=== PATIENT | female | born 1985 | race Caucasian/White ===

== ENCOUNTER → 2016-07-08 | Outpatient (CLI) | payer OTHER, SELFPAY ==
[2016-07-08 13:49] LABS: MEAN CORPUSCULAR HEMOGLOBIN 29.6 pg (27.0-33.0); MEAN CORPUSCULAR HGB CONC 32.4 g/dl (32.0-36.5); MEAN CORPUSCULAR VOLUME 91.3 fl (80.0-96.0); RED CELL DISTRIBUTION WIDTH 13.7 % (11.5-14.5); WHITE BLOOD COUNT 9.8 K/mm3 (4.0-10.0)
== END ==
LOC: M LAB 11:05
PROVIDERS: ATTEND Obstetrics & Gynecology
DX: Z34.82 Encounter for supervision of other normal pregnancy, second trimester (principal)

== ENCOUNTER 2016-07-28 00:24 | Outpatient (CLI) | payer OTHER ==
[~2016-07-28] VITALS: Ht 160 cm; Wt 83.0 kg
[2016-07-28 00:36] VITALS: BP 110/65
[2016-07-28 00:37] VITALS: BP 112/68
== END 2016-07-28 03:20 | disposition home or self-care (01) ==
LOC: M LDO 00:24
PROVIDERS: ATTEND Obstetrics & Gynecology
DX: O62.0 Primary inadequate contractions (principal); Z3A.34 34 weeks gestation of pregnancy

== ENCOUNTER → 2016-08-12 | Outpatient (REF) | payer OTHER | LOC: M LAB REF 17:00 | PROVIDERS: ATTEND Advanced Practice Midwife | DX: Z34.83 Encounter for supervision of other normal pregnancy, third trimester (principal) ==

== ENCOUNTER 2016-08-24 05:28 | Outpatient (CLI) | payer OTHER, SELFPAY ==
[~2016-08-24] VITALS: Ht 160 cm; Wt 90.0 kg
[2016-08-24 05:40] VITALS: BP 115/71
[2016-08-24] MEDS ORDERED: PRENTAB9 PO (05:48)
[2016-08-24 07:05] VITALS: BP 100/59
[2016-08-24 08:25] VITALS: BP 110/67
== END 2016-08-24 08:35 | disposition home or self-care (01) ==
LOC: M LDO 05:28
PROVIDERS: ATTEND Obstetrics & Gynecology
DX: O47.1 False labor at or after 37 completed weeks of gestation (principal); Z3A.38 38 weeks gestation of pregnancy

== ENCOUNTER 2016-08-26 02:29 | Inpatient (IN) | payer OTHER ==
[~2016-08-26] VITALS: Ht 160 cm; Wt 87.0 kg
[~2016-08-26 02:29] MED LIST: PRENTAB9 PO
[2016-08-26] MEDS ORDERED: BUTORPHANOL 2 MG/ML INJ (J0595) As Ordered ONE (05:57)
[2016-08-26] MEDS ORDERED: PROMETHAZINE INJ 25 MG/ML VIAL (J2550) As Ordered ONE (05:58)
[2016-08-26 06:16] LABS: MEAN CORPUSCULAR HEMOGLOBIN 28.3 pg (27.0-33.0); MEAN CORPUSCULAR HGB CONC 33.2 g/dl (32.0-36.5); MEAN CORPUSCULAR VOLUME 85.1 fl (80.0-96.0); RED CELL DISTRIBUTION WIDTH 14.2 % (11.5-14.5); WHITE BLOOD COUNT 10.6 K/mm3 (4.0-10.0)
[2016-08-26] MEDS ORDERED: OXYTOCIN 30 UNITS IN 0.9% NaCl 500ML IV BAG (J2590) As Ordered ONE (06:48)
--- NOTE | 2016-08-26 07:27 | HPE ---
DATE OF ADMISSION: 08/26/2016 REASON FOR ADMISSION: Active labor. HISTORY OF PRESENT ILLNESS: Ms. Aranda is a 31-year-old, 3, para 2, who presents at 38 weeks 6 days estimated gestational age by a last menstrual period and confirmed by a mid trimester ultrasound with complaints of contractions. She reports contractions throughout the day that have increased in frequency and intensity. She reports active movements and denies any vaginal bleeding or leakage of fluid. Her course has been remarkable for late entry to care. Otherwise she has had appropriate visits throughout. PAST MEDICAL HISTORY: None. PAST SURGICAL HISTORY: None. PAST OBSTETRICAL HISTORY: She is a 3, para 2. She has had 2 term vaginal deliveries proven to 6 pounds 15 ounces. MEDICATIONS: - vitamins ALLERGIES: No known drug allergies. SOCIAL HISTORY: She denies alcohol, tobacco or drug use during the . PHYSICAL EXAMINATION: Vital signs are stable. She is afebrile. General Appearance: Well appearing, in no acute distress. She has Category I rate tracing with contractions on the tocometer. Her lungs are clear to auscultation bilaterally. Cardiovascular: Heart regular rate and rhythm. Abdomen soft. Gravid. Nontender. Estimated weight (EFW) 3300 grams. Cervical Exam: 4 cm dilated, 90% effaced, -1 station. LABS: Blood type is O positive. Antibody screen negative. Rubella equivocal. RPR nonreactive. Hepatitis surface antigen negative. HIV negative. Hepatitis C nonreactive. Chlamydia and gonorrhea screens are negative. She had a normal 1-hour Glucola of 116. She is GBS negative. ASSESSMENT: 1. This patient is a 31-year-old, 3, para 2, at 38 weeks and 6 days estimated gestational age in active labor. 2. Reassuring status. PLAN: 1. To admit to labor and delivery. CBC, RPR and type and screen. 2. Anticipate spontaneous vaginal delivery.
[2016-08-26] MEDS ORDERED: OXYTOCIN DRIP 30 UNITS in APPROPRIATE DILUENT 1 EA IV SCH (08:20)
[2016-08-26] MEDS ORDERED: DOCUSATE SODIUM 100 MG CAP PO PRN (08:30)
[2016-08-26] MEDS ORDERED: DIBUCAINE 1% OINTMENT 30GM TOP PRN (08:30)
[2016-08-26] MEDS ORDERED: MEASLES,MUMPS,RUBELLA VACCINE INJ (MMR-II) (90707) SC SCH (08:30)
[2016-08-26] MEDS ORDERED: MOM 30ML SUSPENSION UDC PO PRN (08:30)
[2016-08-26] MEDS ORDERED: METHYLERGONOVINE MALEATE 0.2 MG TAB PO PRN (08:30)
[2016-08-26] MEDS ORDERED: ACETAMINOPHEN 500 MG TAB PO PRN (08:30)
[2016-08-26] MEDS ORDERED: RHOGAM 300 MCG (1500 IU) INJ (J2790) IM SCH (08:30)
--- NOTE | 2016-08-26 08:37 | DN ---
DATE OF DELIVERY: 08/26/2016 TIME OF : 0758. GENDER: Male. 9 and 10, weight 7 pounds, 8 ounces and 3398 grams. ESTIMATED BLOOD LOSS: 300 ML. LACERATIONS: None. ANESTHESIA: None. COUNTS: 5 laparotomy sponges accounted for and after delivery. Ms. Aranda a 31-year-old, 3, now para 3 had a spontaneous vaginal delivery of a live born male infant, 9 and 10, weight was 7 pounds, 8 ounces, 3398 grams that was delivered occiput anterior (OA) over intact perineum followed by delivery of anterior posterior shoulders and corpus clamped times two and was cut. was handed to mom with good cry. Cord blood was then obtained, placenta was then drained and delivered grossly intact. A premixed bag of 500 mL of normal saline with 30 units Pitocin was bolus along with uterine massage. The uterus was firm. On inspection the cervix, vagina, perineum was grossly intact and hemostatic. Mother and baby recovering in stable condition.
[2016-08-26] MEDS: IBUPROFEN 800 MG TAB PO PRN (08:56)
[2016-08-26] MEDS: PRENATAL VITAMIN TAB PO SCH (08:56)
[2016-08-26 09:30] VITALS: BP 105/69
[2016-08-26 10:11] VITALS: BP 124/74
[2016-08-26 18:00] VITALS: BP 122/67
[2016-08-27 06:34] VITALS: BP 118/70
[2016-08-27] MEDS ORDERED: ACET50TA PO (07:37)
[2016-08-27] MEDS ORDERED: IBUP-1114 PO (07:37)
[2016-08-27] MEDS: IBUPROFEN 800 MG TAB PO PRN (09:13)
[2016-08-27] MEDS: PRENATAL VITAMIN TAB PO SCH (09:13)
== END 2016-08-27 15:40 | disposition home or self-care (01) | DRG 560 ==
LOC: M LDO 02:29 → M LDI 05:17 → M OBS 10:08
PROVIDERS: ADMIT Obstetrics & Gynecology; ATTEND Obstetrics & Gynecology
PROC: 10E0XZZ Delivery of Products of Conception, External Approach (ICD-10-PCS; principal; 2016-08-26)
DX: O80 Encounter for full-term uncomplicated delivery (principal); Z37.0 Single live birth; Z3A.38 38 weeks gestation of pregnancy

== ENCOUNTER 2016-10-12 12:16 | Emergency (ER) | payer OTHER ==
[~2016-10-12] VITALS: Ht 160 cm; Wt 83.9 kg
[~2016-10-12 12:16] MED LIST changes: +ACET50TA PO; +IBUP-1114 PO
[2016-10-12 12:18] VITALS: BP 98/64
[2016-10-12] MEDS ORDERED: GENT3OPD OD (12:47)
[2016-10-12] MEDS ORDERED: GENTAMICIN 0.3% OPHTH SOL 5 ML BTL OD ONE (13:00)
== END 2016-10-12 13:06 | disposition home or self-care (01) ==
LOC: M ED 12:40
DX: H10.9 Unspecified conjunctivitis (principal); F33.9 Major depressive disorder, recurrent, unspecified; Z88.5 Allergy status to narcotic agent

== ENCOUNTER → 2017-02-05 | Outpatient (CLI) | payer MEDICAID, OTHER ==
[~2017-02-05] MED LIST changes: +GENT3OPD OD; +NAPR500T PO; +NUVAMIS2
--- NOTE | 2017-02-05 17:34 | REP ---
1ST TRIMESTER ULTRASOUND: Real-time sonographic evaluation of the gravid uterus is performed utilizing transabdominal technique. There is a single living intrauterine gestation with estimated gestational age of 7 weeks 1 day based on a crown rump length of 10 mm, EDC 09/23/2017. heart rate 162 beats per minute. There is no subchorionic hemorrhage. No maternal adnexal region abnormalities are seen. Signed by Almas Tellez MD 02/05/2017 05:37 P
== END ==
LOC: M RAD 14:56
PROVIDERS: ATTEND Physician Assistant
DX: Z32.01 Encounter for pregnancy test, result positive (principal)

== ENCOUNTER 2017-03-13 16:40 | Emergency (ER) | payer MEDICAID, OTHER ==
[~2017-03-13] VITALS: Ht 160 cm; Wt 84.1 kg
[~2017-03-13 16:40] MED LIST changes: -NAPR500T PO; -NUVAMIS2
[2017-03-13] MEDS ORDERED: NUVAMIS2 (16:50)
[2017-03-13] MEDS ORDERED: KETOROLAC 30 MG/ML VIAL (J1885) IV ONE (18:15)
[2017-03-13 18:51] LABS: BASO % 0.2 % (0.0-1.0); EOS # 0.2 10^3/uL (0.0-0.50); EOS % 1.8 % (0.0-3.0); IMMATURE GRANULOCYTE % 0.2 % (0-0); LYMPH # 3.1 10^3/uL (1.5-4.5); LYMPH % 31.2 % (24.0-44.0); MEAN CORPUSCULAR HEMOGLOBIN 28.2 pg (27.0-33.0); MEAN CORPUSCULAR HGB CONC 32.3 g/dl (32.0-36.5); MEAN CORPUSCULAR VOLUME 87.3 fl (80.0-96.0); MONO # 0.5 10^3/uL (0.0-0.8); MONO % 5.5 % (0.0-5.0); NEUTROPHILS % 61.1 % (36.0-66.0); PLATELET COUNT, AUTOMATED 304 10^3/uL (150-450); RED CELL DISTRIBUTION WIDTH 13.1 % (11.5-14.5); WHITE BLOOD COUNT 9.8 10^3/uL (4.0-10.0)
[2017-03-13 19:00] LABS: ADD MORPHOLOGY? NO
[2017-03-13] MEDS ORDERED: NAPR500T PO (19:40)
[2017-03-13 19:53] VITALS: BP 123/78
--- NOTE | 2017-03-13 20:10 | REPUSA ---
CLINICAL HISTORY: Visionary bleeding, AB last month (02/11/17). TECHNIQUE: Realtime sonographic images were obtained in multiple projections. COMMENTS: The uterus is anteverted measuring 9.3 x 4.9 x 6.0 cm. The endometrial echo pattern is markedly thic kened irregular, measuring 22.2 mm. There is no evidence of free fluid within the pelvic cul-de-sac. The right ovary measures 2.4 x 1.7 x 2.5 cm with RI of 0.49 and the left ovary measures 2.4 x 1.5 x 2 .7 cm with RI of 0.55. There is no evidence for abnormal vascularity. There is a left dominant follicle measures 1.8 x 1.6 x 1.6 cm. IMPRESSION: Enlarged, irregular, heterogeneous uterus, likely RPOC. Left dominant follicle measuring 1.8 x 1.6 x 1.6 cm. No torsion.
--- NOTE | 2017-03-15 08:51 | ED PDOC ---
Post-Departure Follow-Up dr chowdary faxed formal report of pelvic us for fu Stefany Andrea MD Mar 15, 2017 08:51
== END 2017-03-13 19:45 | disposition home or self-care (01) ==
LOC: M ED 16:40
DX: N92.0 Excessive and frequent menstruation with regular cycle (principal)
CPT/HCPCS: 76830; 76856; 84702; 85025; 86850; 86900; 86901; 93976; 96374; 99283; J1885

== ENCOUNTER 2019-07-19 17:23 | Emergency (ER) | payer MEDICAID ==
[~2019-07-19] VITALS: Ht 160 cm; Wt 81.9 kg
[~2019-07-19 17:23] MED LIST changes: -ACET50TA PO; +GENT0.3S36 OD; -GENT3OPD OD; +MAPA500T2 PO; +NAPR-837 PO; +NUVAMIS2
[2019-07-19] MEDS ORDERED: LIDOCAINE 4% CREAM 5GM (LMX4) TOP STA (20:01)
[2019-07-19] MEDS ORDERED: IBUPROFEN 600 MG TAB PO ONE (20:15)
[2019-07-19] MEDS ORDERED: IBUP-1022 PO (21:37)
[2019-07-19] MEDS ORDERED: ANEC4CRE3 TOP (21:37)
[2019-07-19 21:39] VITALS: BP 117/69
--- NOTE | 2019-07-20 07:26 | REP ---
Right knee five views: Mineralization and joint spaces are unremarkable. There are no fractures or dislocations. No calcifications or foreign bodies. There is a small joint effusion. Impression: Small joint effusion, otherwise negative right knee. Electronically Signed by Almas Ratliff MD 07/20/2019 07:18 A
== END 2019-07-19 21:46 | disposition home or self-care (01) ==
LOC: M ED 17:23
DX: R22.41 Localized swelling, mass and lump, right lower limb (principal); Z88.5 Allergy status to narcotic agent

== ENCOUNTER 2022-09-21 14:14 | Emergency (ER) | payer OTHER ==
[~2022-09-21] VITALS: Ht 157.5 cm; Wt 80.5 kg
[~2022-09-21 14:14] MED LIST changes: +ANEC4CRE3 TOP; +CEPH500C PO; +IBUP-1022 PO
[2022-09-21] MEDS ORDERED: UNIS25TA5 PO (14:42)
[2022-09-21] MEDS ORDERED: PYRI200T6 PO (14:42)
[2022-09-21] MEDS ORDERED: METOCLOPRAMIDE INJ 10MG/2ML VIAL IV ONE (15:10)
[2022-09-21] MEDS ORDERED: NS 1,000 ML IV ONE ×2 (15:10)
[2022-09-21 15:48] LABS: BASO % 0.1 % (0.0-1.0); EOS # 0.1 10^3/uL (0.0-0.5); EOS % 0.6 % (0.0-3.0); HEMATOCRIT 36.6 % (36.0-47.0); HEMOGLOBIN 11.9 g/dl (12.0-15.5); LYMPH # 1.8 10^3/uL (1.5-5.0); LYMPH % 15.9 % (24.0-44.0); MEAN CORPUSCULAR HEMOGLOBIN 28.1 pg (27.0-33.0); MEAN CORPUSCULAR HGB CONC 32.5 g/dl (32.0-36.5); MEAN CORPUSCULAR VOLUME 86.3 fl (80.0-96.0); MONO # 0.6 10^3/uL (0.0-0.8); MONO % 5.1 % (2.0-8.0); NEUTROPHILS # 8.6 10^3/uL (1.5-8.5); NEUTROPHILS % 77.8 % (36.0-66.0); PLATELET COUNT, AUTOMATED 273 10^3/uL (150-450); RED BLOOD COUNT 4.24 10^6/uL (4.00-5.40); WHITE BLOOD COUNT 11.1 10^3/uL (4.0-10.0)
[2022-09-21 16:12] LABS: LIPASE 29 U/L (12-53)
[2022-09-21 16:14] LABS: ALBUMIN 3.8 G/DL (3.2-5.2); ALKALINE PHOSPHATASE 64 U/L (46-116); ALT/SGPT 10 U/L (7.0-40); AST/SGOT 8 U/L (<34); BILIRUBIN,DIRECT 0.1 MG/DL (<0.4); BILIRUBIN,TOTAL 0.5 MG/DL (0.3-1.2); BLOOD UREA NITROGEN 7 MG/DL (9-23); CALCIUM LEVEL 9.3 MG/DL (8.5-10.1); CARBON DIOXIDE LEVEL 27 MMOL/L (20-31); CHLORIDE LEVEL 102 MMOL/L (98-107); GLOMERULAR FILTRATION RATE > 60.0 (>60); GLUCOSE, FASTING 90 MG/DL (60-100); POTASSIUM SERUM 3.5 MMOL/L (3.5-5.1); SODIUM LEVEL 137 MMOL/L (136-145)
[2022-09-21 17:21] LABS: APPEARANCE, URINE HAZY (CLEAR); BACTERIA, URINE AUTO NEGATIVE (NEGATIVE); BILIRUBIN, URINE AUTO NEGATIVE (NEGATIVE); BLOOD, URINE BLOOD 2+ (NEGATIVE); COLOR, URINE YELLOW (YELLOW); GLUCOSE, URINE (UA) AUTO NEGATIVE (NEGATIVE); KETONE, URINE AUTO 2+ mg/dL (NEGATIVE); LEUKOCYTE ESTERASE, URINE AUTO NEGATIVE (NEGATIVE); MUCUS, URINE MODERATE (NEGATIVE); NITRITE, URINE AUTO NEGATIVE (NEGATIVE); PROTEIN, URINE AUTO 2+ mg/dL (NEGATIVE); RBC, URINE AUTO 25 /HPF (0-3); SPECIFIC GRAVITY URINE AUTO 1.029 (1.002-1.035); SQUAMOUS EPITHELIAL CELL UR AU 5 /HPF (0-6); WBC, URINE AUTO 0 /HPF (0-3)
[2022-09-21] MEDS ORDERED: ONDA4TAB6 PO (17:41)
[2022-09-21 18:01] VITALS: BP 121/74
== END 2022-09-21 18:05 | disposition home or self-care (01) ==
LOC: M ED 14:14
DX: O21.9 Vomiting of pregnancy, unspecified (principal); Z3A.13 13 weeks gestation of pregnancy; O99.341 Other mental disorders complicating pregnancy, first trimester
CPT/HCPCS: 80048; 80076; 81001; 83690; 85025; 96374; 99284; J2765

== ENCOUNTER → 2022-10-01 | Outpatient (CLI) | payer OTHER ==
[~2022-10-01] MED LIST changes: +ONDA4TAB6 PO; +PYRI200T6 PO; +UNIS25TA5 PO
[2022-10-01 10:21] LABS: HEMOGLOBIN 11.3 g/dl (12.0-15.5); MEAN CORPUSCULAR HEMOGLOBIN 28.4 pg (27.0-33.0); MEAN CORPUSCULAR HGB CONC 32.3 g/dl (32.0-36.5); MEAN CORPUSCULAR VOLUME 87.9 fl (80.0-96.0); PLATELET COUNT, AUTOMATED 259 10^3/uL (150-450); RED BLOOD COUNT 3.98 10^6/uL (4.00-5.40); WHITE BLOOD COUNT 8.8 10^3/uL (4.0-10.0)
[2022-10-01 11:17] LABS: HIV 1&2 SCREEN ATELLICA NEGATIVE (NEGATIVE)
[2022-10-01 14:28] LABS: GC DNA AMPLIFICATION NEGATIVE (NEGATIVE)
== END ==
LOC: M PLALAB 09:18
PROVIDERS: ATTEND Specialist
DX: Z36.9 Encounter for antenatal screening, unspecified (principal)

== ENCOUNTER → 2022-11-13 | Outpatient (REF) | payer OTHER ==
[~2022-11-13] MED LIST changes: +ETON1VAG7; -NUVAMIS2
== END ==
LOC: M PLALAB 15:09
PROVIDERS: ATTEND Advanced Practice Midwife
DX: O09.522 Supervision of elderly multigravida, second trimester (principal); Z3A.00 Weeks of gestation of pregnancy not specified

== ENCOUNTER → 2022-11-22 | Outpatient (CLI) | payer OTHER | LOC: M WHC 13:10 | PROVIDERS: ATTEND Obstetrics & Gynecology | DX: O09.521 Supervision of elderly multigravida, first trimester (principal) ==

== ENCOUNTER → 2023-01-07 | Outpatient (CLI) | payer OTHER ==
[2023-01-07 16:30] LABS: HEMATOCRIT 32.6 % (36.0-47.0); HEMOGLOBIN 10.2 g/dl (12.0-15.5); MEAN CORPUSCULAR HEMOGLOBIN 27.3 pg (27.0-33.0); MEAN CORPUSCULAR HGB CONC 31.3 g/dl (32.0-36.5); MEAN CORPUSCULAR VOLUME 87.4 fl (80.0-96.0); PLATELET COUNT, AUTOMATED 285 10^3/uL (150-450); RED BLOOD COUNT 3.73 10^6/uL (4.00-5.40); WHITE BLOOD COUNT 11.4 10^3/uL (4.0-10.0)
[2023-01-07 17:31] LABS: GC DNA AMPLIFICATION NEGATIVE (NEGATIVE)
== END ==
LOC: M LAB 13:47
PROVIDERS: ATTEND Obstetrics & Gynecology
DX: Z34.93 Encounter for supervision of normal pregnancy, unspecified, third trimester (principal)

== ENCOUNTER → 2023-02-03 | Outpatient (CLI) | payer OTHER | LOC: M RAD 14:52 | PROVIDERS: ATTEND Obstetrics & Gynecology | DX: Z36.2 Encounter for other antenatal screening follow-up (principal) ==

== ENCOUNTER → 2023-03-05 | Outpatient (REF) | payer OTHER | LOC: M SFHCWAGY 16:53 | PROVIDERS: ATTEND Specialist | DX: Z36.85 Encounter for antenatal screening for Streptococcus B (principal) ==

== ENCOUNTER 2023-10-01 06:57 | Day surgery (SDC) | payer OTHER ==
[~2023-10-01] VITALS: Ht 160 cm; Wt 95.7 kg
[2023-10-01] MEDS ORDERED: LR 1,000 ML IV SCH ×2 (07:00→09:25)
[2023-10-01] MEDS ORDERED: MIDAZOLAM INJ 2MG/2ML VIAL As Ordered ONE (07:26)
[2023-10-01] MEDS ORDERED: LIDOCAINE 2% 100MG/5ML SDV (FOR ANES.) As Ordered ONE (07:27)
[2023-10-01] MEDS ORDERED: ROCURONIUM BROMIDE 50MG/5ML VIAL As Ordered ONE (07:27)
[2023-10-01] MEDS ORDERED: propofoL 200 MG/20 ML VIAL As Ordered ONE (07:27)
[2023-10-01] MEDS ORDERED: ONDANSETRON 4MG 2ML VIAL As Ordered ONE (07:27)
[2023-10-01] MEDS ORDERED: KETOROLAC 60MG 2ML VIAL As Ordered ONE (07:27)
[2023-10-01] MEDS ORDERED: fentaNYL 100 MCG/2 ML INJECTION As Ordered ONE (07:27)
[2023-10-01] MEDS ORDERED: ACETAMINOPHEN 1000MG 100ML IV BAG As Ordered ONE (07:31)
[2023-10-01 07:55] LABS: HEMATOCRIT 36.3 % (36.0-47.0); HEMOGLOBIN 11.9 g/dl (12.0-15.5); MEAN CORPUSCULAR HEMOGLOBIN 27.7 pg (27.0-33.0); MEAN CORPUSCULAR HGB CONC 32.8 g/dl (32.0-36.5); MEAN CORPUSCULAR VOLUME 84.6 fl (80.0-96.0); PLATELET COUNT, AUTOMATED 253 10^3/uL (150-450); RED BLOOD COUNT 4.29 10^6/uL (4.00-5.40)
[2023-10-01] MEDS ORDERED: SUGAMMADEX SODIUM 500 MG/5 ML VIAL (BRIDION) As Ordered ONE (08:43)
[2023-10-01] MEDS ORDERED: dexmedeTOMIDine (4MCG/ML)200MCG/50ML BTL (PRECEDEX) As Ordered ONE (08:50)
[2023-10-01] MEDS ORDERED: fentaNYL 100 MCG/2 ML INJECTION IV PRN (09:25)
[2023-10-01] MEDS ORDERED: ONDANSETRON 4MG 2ML VIAL IV PRN ×2 (09:25→09:50)
[2023-10-01] MEDS ORDERED: oxyCODONE 5MG TAB PO PRN (09:25)
[2023-10-01] MEDS ORDERED: HYDROMORPHONE HCL 0.5 MG/ 0.5 ML SYRINGE IV PRN (09:25)
[2023-10-01] MEDS ORDERED: MORPHINE 2 MG/ML 1ML VIAL IV PRN (09:50)
[2023-10-01] MEDS ORDERED: METOCLOPRAMIDE INJ 10MG/2ML VIAL IV PRN (09:50)
[2023-10-01 12:00] VITALS: BP 118/74; TEMP 97.1; O2SAT 97
== END 2023-10-01 12:10 | disposition home or self-care (01) ==
LOC: M SDC 06:57
PROVIDERS: ATTEND Obstetrics & Gynecology
DX: Z30.2 Encounter for sterilization (principal); Z88.0 Allergy status to penicillin; Z88.5 Allergy status to narcotic agent; E66.9 Obesity, unspecified
CPT/HCPCS: 36415; 58661; 81025; 85027; 86850; 86900; 86901; 88302; J0131; J0665; J1100; J1885; J2250; J2405; J3010

== ENCOUNTER 2024-10-03 19:41 | Emergency (ER) | payer MEDICAID, OTHER ==
[~2024-10-03] VITALS: Ht 160 cm; Wt 83.9 kg
[~2024-10-03 19:41] MED LIST changes: +ONDA-282 PO; -ONDA4TAB6 PO
[2024-10-03 19:44] VITALS: BP 114/68; TEMP 98.2; O2SAT 99
[2024-10-03 20:51] LABS: BASO % 0.2 % (0.0-1.0); EOS # 0.2 10^3/uL (0.0-0.5); EOS % 1.2 % (0.0-3.0); HEMATOCRIT 31.6 % (36.0-47.0); HEMOGLOBIN 9.6 g/dl (12.0-15.5); LYMPH # 2.4 10^3/uL (1.5-5.0); LYMPH % 18.6 % (24.0-44.0); MEAN CORPUSCULAR HEMOGLOBIN 23.6 pg (27.0-33.0); MEAN CORPUSCULAR HGB CONC 30.4 g/dl (32.0-36.5); MEAN CORPUSCULAR VOLUME 77.8 fl (80.0-96.0); MONO # 0.9 10^3/uL (0.0-0.8); MONO % 7.1 % (2.0-8.0); NEUTROPHILS # 9.3 10^3/uL (1.5-8.5); NEUTROPHILS % 72.4 % (36.0-66.0); PLATELET COUNT, AUTOMATED 318 10^3/uL (150-450); RED BLOOD COUNT 4.06 10^6/uL (4.00-5.40); WHITE BLOOD COUNT 12.8 10^3/uL (4.0-10.0)
[2024-10-03 21:13] LABS: LIPASE 28 U/L (12-53)
[2024-10-03 21:15] LABS: ALBUMIN 3.5 G/DL (3.2-5.2); ALKALINE PHOSPHATASE 86 U/L (35-104); ALT/SGPT 11 U/L (7.0-40); AST/SGOT < 8 U/L (<34); BILIRUBIN,DIRECT < 0.1 MG/DL (<0.4); BILIRUBIN,TOTAL 0.3 MG/DL (0.3-1.2); BLOOD UREA NITROGEN 12 MG/DL (9-23); CALCIUM LEVEL 8.7 MG/DL (8.5-10.1); CARBON DIOXIDE LEVEL 26 MMOL/L (20-31); CHLORIDE LEVEL 105 MMOL/L (98-107); CREATININE FOR GFR 0.68 MG/DL (0.55-1.30); GLOMERULAR FILTRATION RATE > 90.0 (>60); GLUCOSE, FASTING 99 MG/DL (60-100); POTASSIUM SERUM 3.9 MMOL/L (3.5-5.1); SODIUM LEVEL 140 MMOL/L (136-145); TOTAL PROTEIN 6.8 G/DL (5.7-8.2)
[2024-10-03] MEDS: KETOROLAC 30 MG/ML 1ML VIAL IV ONE (22:27)
[2024-10-03] MEDS ORDERED: ISOVUE-370 76% 100ML VIAL As Ordered ONE (22:29)
[2024-10-03] MEDS: GASTROGRAFIN SOLUTION 30ML PO SCH (23:00)
[2024-10-03 23:51] LABS: IRON (FE) 6 UG/DL (50-170); PERCENT SATURATION 1.6 % (13.2-45.0); TOTAL IRON BINDING CAPACITY 385 UG/DL (250-425)
[2024-10-03 23:53] LABS: FERRITIN 26.8 NG/ML (7.3-270.7)
[2024-10-03 23:54] LABS: FOLATE 7.34 NG/ML (>5.4); VITAMIN B12 LEVEL 242 PG/ML (211-911)
[2024-10-04] MEDS: LevoFLOXacin IV 750 MG in IV 1 EA IV ONE (01:57)
[2024-10-04] MEDS ORDERED: LEVO1TAB40 PO (02:21)
[2024-10-04] MEDS ORDERED: FERR324T21 PO (02:21)
== END 2024-10-04 02:55 | disposition home or self-care (01) ==
LOC: M ED 19:41
DX: K57.92 Diverticulitis of intestine, part unspecified, without perforation or abscess without bleeding (principal); D50.9 Iron deficiency anemia, unspecified; F41.9 Anxiety disorder, unspecified; F32.A Depression, unspecified; Z87.891 Personal history of nicotine dependence; Z88.0 Allergy status to penicillin; Z88.5 Allergy status to narcotic agent
CPT/HCPCS: 74177; 80048; 80076; 82607; 82728; 82746; 83550; 83690; 85025; 96365; 96375; 99283; J1885; J1956; Q9963; Q9967